=== PATIENT | female | born 1965 | race Caucasian/White ===

== ENCOUNTER → 2016-05-13 08:49 | Outpatient (CLI) | payer MEDICAID ==
[~2016-05-13 08:49] MED LIST: ASPIRIN EC81 M1 PO; CATAPRES0.1 MG PO; HYDROCODON-ACE1 EAC9 PO; HYDROXYZINE HCL10 MG PO; LIPITOR20 MG PO; PRILOSEC20 MG PO; RESTORIL15 MG PO; SOMA350 MG PO; TYLENOL W/CODEI1 TAB PO
== END | disposition home or self-care (01) ==
LOC: D.RT 08:49
DX: J44.9 Chronic obstructive pulmonary disease, unspecified (principal)

== ENCOUNTER 2018-05-20 14:44 | Emergency (ER) | payer MEDICAID ==
[~2018-05-20] VITALS: Ht 147.3 cm; Wt 45.5 kg
[2018-05-20 14:57] VITALS: Ht 147.3 cm; Wt 45.5 kg
[2018-05-20] MEDS ORDERED: SYNTHROID88 MCG PO (15:01)
[2018-05-20] MEDS ORDERED: OXYCODONE-APAP1 TAB PO (15:01)
[2018-05-20] MEDS ORDERED: CARAFATE1 G PO (15:01)
[2018-05-20] MEDS ORDERED: ZOFRAN8 MG PO (15:01)
[2018-05-20 15:51] LABS: BASOPHILS 0.1 % (0-2); EOSINOPHILS 0.4 % (0-7); HEMATOCRIT 44.7 % (36.0-48.0); HEMOGLOBIN 15.2 g/dL (12-16); IMMATURE GRANULOCYTES 0.1 % (0-5); LYMPHOCYTES 17.2 % (15-50); MCH 32.7 pg (26.0-34.0); MCV 96.1 fL (80.0-100.0); MEAN PLATELET VOLUME 9.6 fL (7.4-10.4); MONOCYTES 3.5 % (2-11); NEUTROPHILS 78.7 % (40-80); PLATELET COUNT 283 10x3/uL (130-400); RBC 4.65 10x6/uL (4.00-5.40); RDW 13.1 % (11.5-14.5); WBC 10.3 10x3/uL (4.8-10.8)
[2018-05-20 16:11] LABS: APPEARANCE CLEAR (CLEAR); BILIRUBIN NEGATIVE (NEGATIVE); COLOR DK YELLOW (YELLOW); GLUCOSE NEGATIVE (NEGATIVE); KETONE NEGATIVE (NEGATIVE); NITRITE NEGATIVE (NEGATIVE); PROTEIN NEGATIVE (NEGATIVE); SPECIFIC GRAVITY 1.025 (1.005-1.020); UROBILINOGEN NORMAL (NORMAL)
[2018-05-20 16:12] LABS: BACTERIA FEW /hpf (NONE SEEN); EPITHELIAL CELLS 0-5 /hpf (0-5); RED CELLS - URINE 0-5 /hpf (0-5); WHITE CELLS - URINE 0-5 /hpf (0-5); YEAST <1+ /hpf (NONE SEEN)
[2018-05-20 16:13] LABS: CALCIUM OXALATE CRYSTALS 0-5 /hpf (NONE SEEN)
[2018-05-20 16:14] LABS: ALBUMIN 2.9 g/dL (3.4-5.0); ANION GAP 13.6 mmol/L (8-16); BILIRUBIN - TOTAL 0.35 mg/dL (0.2-1.3); CALCIUM 8.8 mg/dL (8.5-10.1); POTASSIUM - SERUM 3.6 mmol/L (3.5-5.1); PROTEIN - SERUM 6.5 g/dL (6.4-8.2)
[2018-05-20 17:26] LABS: UDS - AMPHET NEGATIVE QUAL (NEGATIVE); UDS - BARB NEGATIVE QUAL (NEGATIVE); UDS - BENZO NEGATIVE QUAL (NEGATIVE); UDS - COCAINE NEGATIVE QUAL (NEGATIVE); UDS - OPIATE POSITIVE QUAL (NEGATIVE); UDS - PCP NEGATIVE QUAL (NEGATIVE); UDS - THC NEGATIVE QUAL (NEGATIVE)
[2018-05-20] MEDS ORDERED: MIRALAX17 GM PO (21:27)
[2018-05-20] MEDS ORDERED: OMEPRAZOLE20 M1 PO (21:28)
[2018-05-20 22:35] VITALS: BP 90/63
== END 2018-05-20 22:35 | disposition home or self-care (01) ==
LOC: D.ER 14:44
PROVIDERS: Emergency Medicine
DX: Z87.19 Personal history of other diseases of the digestive system (principal); N39.0 Urinary tract infection, site not specified

== ENCOUNTER → 2018-06-13 16:40 | Outpatient (CLI) | payer MEDICAID ==
[2018-05-20 14:57] VITALS: BMI 20.9
[~2018-06-13 16:40] MED LIST changes: +CARAFATE1 G PO; +MIRALAX17 GM PO; +OMEPRAZOLE20 M1 PO; +OXYCODONE-APAP1 TAB PO; +SYNTHROID88 MCG PO; +ZOFRAN8 MG PO
== END | disposition home or self-care (01) ==
LOC: D.RAD 16:40
DX: G89.4 Chronic pain syndrome (principal); E07.9 Disorder of thyroid, unspecified; J45.909 Unspecified asthma, uncomplicated; M79.602 Pain in left arm; M25.519 Pain in unspecified shoulder; G90.50 Complex regional pain syndrome I, unspecified; Z79.899 Other long term (current) drug therapy

== ENCOUNTER 2018-12-01 13:38 | Emergency (ER) | payer MEDICAID ==
[~2018-12-01] VITALS: Ht 147.3 cm; Wt 40.9 kg
[2018-12-01 13:51] VITALS: Ht 147.3 cm; Wt 40.9 kg
[2018-12-01 14:28] LABS: BASOPHILS 0.4 % (0-2); EOSINOPHILS 1.3 % (0-7); HEMATOCRIT 32.6 % (36.0-48.0); HEMOGLOBIN 11.3 g/dL (12-16); IMMATURE GRANULOCYTES 0.6 % (0-5); LYMPHOCYTES 34.6 % (15-50); MCH 36.5 pg (26.0-34.0); MCHC 34.7 g/dL (31.0-37.0); MCV 105.2 fL (80.0-100.0); MEAN PLATELET VOLUME 8.8 fL (7.4-10.4); MONOCYTES 4.4 % (2-11); NEUTROPHILS 58.7 % (40-80); RDW 14.8 % (11.5-14.5); WBC 5.4 10x3/uL (4.8-10.8)
[2018-12-01 14:29] LABS: PLATELET COUNT 470 10x3/uL (130-400)
[2018-12-01 14:37] LABS: APTT 31.5 SECONDS (22.8-39.4); INR 0.98 (0.85-1.17); PROTIME 12.5 SECONDS (11.6-15.0)
[2018-12-01 14:41] LABS: ALBUMIN 3.1 g/dL (3.4-5.0); ALKALINE PHOSPHATASE 153 U/L (46-116); ALT (SGPT) 34 U/L (10-68); BILIRUBIN - TOTAL 0.84 mg/dL (0.2-1.3); CALC OSMOLALITY 265 mosm/kg (275-300); CALCIUM 8.1 mg/dL (8.5-10.1); CARBON DIOXIDE 19.7 mmol/L (21.0-32.0); CHLORIDE - SERUM 97 mmol/L (98-107); CREATININE - SERUM 0.9 mg/dL (0.6-1.3); GLUCOSE 93 mg/dL (74-106); POTASSIUM - SERUM 3.6 mmol/L (3.5-5.1); PROTEIN - SERUM 6.9 g/dL (6.4-8.2); SODIUM 134 mmol/L (136-145); UREA NITROGEN 7 mg/dL (7-18); eGFR NON AFRICAN AMERICAN 70 mL/min (90-120)
[2018-12-01 14:52] LABS: CKMB 0.5 U/L (0.0-3.6); CREATINE KINASE 74 UL (21-215); MAGNESIUM - SERUM 1.9 mg/dL (1.8-2.4)
[2018-12-01 15:01] LABS: TROPONIN-I < 0.017 ng/mL (0.000-0.060)
[2018-12-01 15:36] LABS: AMYLASE - SERUM 20 U/L (25-115); LIPASE 54 U/L (73-393)
[2018-12-01] MEDS ORDERED: FLAGYL500 MG PO (17:21)
[2018-12-01] MEDS ORDERED: CIPRO500 MG PO (17:21)
[2018-12-01 18:01] VITALS: BP 93/67
== END 2018-12-01 18:01 | disposition home or self-care (01) ==
LOC: D.ER 13:38
PROVIDERS: Family Medicine
DX: K52.9 Noninfective gastroenteritis and colitis, unspecified (principal); G89.29 Other chronic pain; R16.0 Hepatomegaly, not elsewhere classified

== ENCOUNTER 2019-01-05 20:01 | Inpatient (IN) | payer MEDICAID ==
[~2019-01-05] VITALS: Ht 147.3 cm; Wt 43.4 kg
[~2019-01-05 20:01] MED LIST changes: +CIPRO500 MG PO; +FLAGYL500 MG PO
[2019-01-05] MEDS ORDERED: BACLOFEN10 MG PO (20:19)
[2019-01-05 20:31] LABS: BASOPHILS 0.2 % (0-2); EOSINOPHILS 0.7 % (0-7); HEMATOCRIT 35.9 % (36.0-48.0); HEMOGLOBIN 12.6 g/dL (12-16); IMMATURE GRANULOCYTES 0.3 % (0-5); LYMPHOCYTES 23.9 % (15-50); MCH 36.5 pg (26.0-34.0); MCHC 35.1 g/dL (31.0-37.0); MCV 104.1 fL (80.0-100.0); MEAN PLATELET VOLUME 9.2 fL (7.4-10.4); MONOCYTES 5.7 % (2-11); NEUTROPHILS 69.2 % (40-80); RBC 3.45 10x6/uL (4.00-5.40)
[2019-01-05 20:39] LABS: PLATELET COUNT 373 10x3/uL (130-400)
[2019-01-05 20:48] LABS: ALBUMIN 2.8 g/dL (3.4-5.0); ALKALINE PHOSPHATASE 115 U/L (46-116); ALT (SGPT) 13 U/L (10-68); AMYLASE - SERUM 14 U/L (25-115); CALC OSMOLALITY 270 mosm/kg (275-300); CALCIUM 8.6 mg/dL (8.5-10.1); CARBON DIOXIDE 27.4 mmol/L (21.0-32.0); CHLORIDE - SERUM 99 mmol/L (98-107); GLUCOSE 119 mg/dL (74-106); LIPASE 55 U/L (73-393); POTASSIUM - SERUM 4.2 mmol/L (3.5-5.1); PROTEIN - SERUM 6.3 g/dL (6.4-8.2); SODIUM 134 mmol/L (136-145); UREA NITROGEN 18 mg/dL (7-18); eGFR NON AFRICAN AMERICAN 62 mL/min (90-120)
[2019-01-05 20:49] LABS: TROPONIN-I < 0.017 ng/mL (0.000-0.060)
[2019-01-06 00:04] VITALS: BP 107/72; BMI 18.0
[2019-01-06 04:00] VITALS: BP 97/68
[2019-01-06 04:43] LABS: BASOPHILS 0.1 % (0-2); EOSINOPHILS 0.8 % (0-7); IMMATURE GRANULOCYTES 0.2 % (0-5); LYMPHOCYTES 20.9 % (15-50); MCH 35.8 pg (26.0-34.0); MCHC 34.5 g/dL (31.0-37.0); MCV 103.6 fL (80.0-100.0); MEAN PLATELET VOLUME 9.6 fL (7.4-10.4); MONOCYTES 6.2 % (2-11); NEUTROPHILS 71.8 % (40-80); PLATELET COUNT 313 10x3/uL (130-400); RDW 14.2 % (11.5-14.5)
[2019-01-06 04:56] LABS: WBC 8.9 10x3/uL (4.8-10.8)
[2019-01-06 04:57] LABS: CALC OSMOLALITY 273 mosm/kg (275-300); CALCIUM 7.6 mg/dL (8.5-10.1); CARBON DIOXIDE 21.9 mmol/L (21.0-32.0); CHLORIDE - SERUM 103 mmol/L (98-107); GLUCOSE 89 mg/dL (74-106); HEMATOCRIT 28.4 % (36.0-48.0); HEMOGLOBIN 9.8 g/dL (12-16); MAGNESIUM - SERUM 1.7 mg/dL (1.8-2.4); PHOSPHOROUS 2.9 mg/dL (2.5-4.9); POTASSIUM - SERUM 3.9 mmol/L (3.5-5.1); RBC 2.74 10x6/uL (4.00-5.40); SODIUM 137 mmol/L (136-145); UREA NITROGEN 14 mg/dL (7-18)
[2019-01-06 05:01] LABS: CREATININE - SERUM 0.7 mg/dL (0.6-1.3); eGFR NON AFRICAN AMERICAN > 90 mL/min (90-120)
[2019-01-06 08:00] VITALS: BP 94/64
[2019-01-06 11:07] LABS: APPEARANCE CLEAR (CLEAR); BILIRUBIN NEGATIVE (NEGATIVE); COLOR YELLOW (YELLOW); GLUCOSE NEGATIVE (NEGATIVE); KETONE LARGE mg/dL (NEGATIVE); NITRITE NEGATIVE (NEGATIVE); PROTEIN NEGATIVE (NEGATIVE); SPECIFIC GRAVITY 1.005 (1.005-1.020)
[2019-01-06 11:13] LABS: UDS - AMPHET NEGATIVE QUAL (NEGATIVE); UDS - BARB NEGATIVE QUAL (NEGATIVE); UDS - BENZO POSITIVE QUAL (NEGATIVE); UDS - COCAINE NEGATIVE QUAL (NEGATIVE); UDS - OPIATE POSITIVE QUAL (NEGATIVE); UDS - PCP NEGATIVE QUAL (NEGATIVE); UDS - THC NEGATIVE QUAL (NEGATIVE)
[2019-01-06 12:30] VITALS: BP 93/64
[2019-01-06 16:30] VITALS: BP 97/70
[2019-01-06 20:00] VITALS: BP 91/57
[2019-01-07 00:18] VITALS: BP 80/48
[2019-01-07 05:35] LABS: BASOPHILS 0.2 % (0-2); EOSINOPHILS 2.1 % (0-7); HEMATOCRIT 25.6 % (36.0-48.0); HEMOGLOBIN 8.4 g/dL (12-16); IMMATURE GRANULOCYTES 0.2 % (0-5); LYMPHOCYTES 26.7 % (15-50); MCH 33.7 pg (26.0-34.0); MCHC 32.8 g/dL (31.0-37.0); MCV 102.8 fL (80.0-100.0); MEAN PLATELET VOLUME 9.7 fL (7.4-10.4); MONOCYTES 5.5 % (2-11); NEUTROPHILS 65.3 % (40-80); PLATELET COUNT 272 10x3/uL (130-400); RBC 2.49 10x6/uL (4.00-5.40); RDW 14.1 % (11.5-14.5)
[2019-01-07 05:42] LABS: WBC 5.7 10x3/uL (4.8-10.8)
[2019-01-07 05:58] LABS: CALC OSMOLALITY 275 mosm/kg (275-300); CALCIUM 7.4 mg/dL (8.5-10.1); CARBON DIOXIDE 22.7 mmol/L (21.0-32.0); CHLORIDE - SERUM 108 mmol/L (98-107); CREATININE - SERUM 0.7 mg/dL (0.6-1.3); GLUCOSE 91 mg/dL (74-106); POTASSIUM - SERUM 3.7 mmol/L (3.5-5.1); SODIUM 140 mmol/L (136-145); eGFR NON AFRICAN AMERICAN > 90 mL/min (90-120)
[2019-01-07 06:02] LABS: UREA NITROGEN 5 mg/dL (7-18)
[2019-01-07 06:25] VITALS: BP 87/55
[2019-01-07 08:43] VITALS: BP 95/61
[2019-01-07 10:37] VITALS: Ht 147.3 cm; Wt 43.4 kg
[2019-01-07 13:28] VITALS: BP 105/63
[2019-01-07 17:15] VITALS: BP 97/66
[2019-01-07 20:00] VITALS: BP 99/70
[2019-01-08 00:01] VITALS: BP 89/55
[2019-01-08 04:00] VITALS: BP 100/68
[2019-01-08 06:42] LABS: CALCIUM 7.5 mg/dL (8.5-10.1); CARBON DIOXIDE 20.7 mmol/L (21.0-32.0); CHLORIDE - SERUM 111 mmol/L (98-107); CREATININE - SERUM 0.7 mg/dL (0.6-1.3); GLUCOSE 82 mg/dL (74-106); SODIUM 143 mmol/L (136-145); eGFR NON AFRICAN AMERICAN > 90 mL/min (90-120)
[2019-01-08 06:43] LABS: CALC OSMOLALITY 279 mosm/kg (275-300); UREA NITROGEN 2 mg/dL (7-18)
[2019-01-08 06:51] LABS: BASOPHILS 0.3 % (0-2); EOSINOPHILS 1.4 % (0-7); HEMATOCRIT 24.3 % (36.0-48.0); HEMOGLOBIN 8.6 g/dL (12-16); IMMATURE GRANULOCYTES 0.3 % (0-5); LYMPHOCYTES 25.1 % (15-50); MCH 36.4 pg (26.0-34.0); MCHC 35.4 g/dL (31.0-37.0); MEAN PLATELET VOLUME 9.2 fL (7.4-10.4); MONOCYTES 2.9 % (2-11); PLATELET COUNT 325 10x3/uL (130-400); RBC 2.36 10x6/uL (4.00-5.40); RDW 14.3 % (11.5-14.5)
[2019-01-08 07:07] LABS: WBC 7.3 10x3/uL (4.8-10.8)
[2019-01-08 09:03] VITALS: BP 124/78
[2019-01-08 12:34] VITALS: BP 104/75
[2019-01-08] MEDS ORDERED: FLAGYL500 MG PO (16:17)
[2019-01-08] MEDS ORDERED: LEVAQUIN750 MG PO (16:18)
--- NOTE | 2019-01-09 07:34 | MORECARE ---
CASE MANAGEMENT DISCHARGE SUMMARY PATIENT: SOLO POWELL UNIT: [id number] ADM DATE: 01/05/19 AGE: 53 : 67 SEX: F ROOM/BED: D.2110 AUTHOR: JE COE PHYSICIAN: REFERRING PHYSICIAN: MARY ALLRED MD DATE OF SERVICE: 01/09/19 Discharge Plan Patient Name: SOLO [facility]OWELL [facility] [facility] 1965 Planned Disposition: Home Anticipated Discharge Date: 01/08/19 Discharge Date: 01/08/2019 Expected LOS: 3 Initial Reviewer: [email or web address] Initial Review Date: 01/08/2019 Generated: 01/09/19 8:34 am Patient Name: SOLO POWELL Page [id number] at 0734 All edits/amendments must be made on the electronic document DICTATION DATE: 01/09/1934 SEWER SEPARATION DESIGNER: [email or web address] 01/09/19 0734 RPT#: [id number] DC DATE:01/08/19 STATUS: DIS IN [facility] [address] [place] [address] END OF REPORT
== END 2019-01-08 17:26 | disposition home or self-care (01) | DRG 394 ==
LOC: D.ER 20:01 → D.M2 22:41
PROVIDERS: Family Medicine; ADMIT Internal Medicine Nephrology; ATTEND Internal Medicine Nephrology
DX: K52.1 Toxic gastroenteritis and colitis (principal); E87.1 Hypo-osmolality and hyponatremia; N17.9 Acute kidney failure, unspecified; F17.213 Nicotine dependence, cigarettes, with withdrawal; K58.9 Irritable bowel syndrome, unspecified; D64.9 Anemia, unspecified; E83.42 Hypomagnesemia; E78.5 Hyperlipidemia, unspecified; E03.9 Hypothyroidism, unspecified; T50.995A Adverse effect of other drugs, medicaments and biological substances, initial encounter

== ENCOUNTER 2019-10-09 12:08 | Emergency (ER) | payer MEDICAID ==
[~2019-10-09] VITALS: Ht 147.3 cm; Wt 36.5 kg
[~2019-10-09 12:08] MED LIST changes: +BACLOFEN10 MG PO; +LEVAQUIN750 MG PO
[2019-10-09 12:20] VITALS: BP 138/77; Ht 147.3 cm; Wt 36.5 kg
[2019-10-09] MEDS ORDERED: AMBIEN5 MG PO (12:27)
[2019-10-09] MEDS ORDERED: PHENERGAN25 M1 PO (12:28)
[2019-10-09] MEDS ORDERED: CYPROHEPTAD2 MG/5 ML PO (12:29)
[2019-10-09] MEDS ORDERED: MELATONIN10 M1 PO (12:29)
[2019-10-09] MEDS ORDERED: ZYRTEC10 MG PO (12:29)
[2019-10-09 12:48] LABS: BASOPHILS 0.7 % (0-2); EOSINOPHILS 2.5 % (0-7); IMMATURE GRANULOCYTES 0.1 % (0-5); LYMPHOCYTES 41.7 % (15-50); MCH 33.4 pg (26.0-34.0); MCHC 34.2 g/dL (31.0-37.0); MCV 97.7 fL (80.0-100.0); MEAN PLATELET VOLUME 9.2 fL (7.4-10.4); MONOCYTES 4.5 % (2-11); NEUTROPHILS 50.5 % (40-80); PLATELET COUNT 372 10x3/uL (130-400); RBC 3.89 10x6/uL (4.00-5.40); RDW 15.4 % (11.5-14.5); WBC 7.5 10x3/uL (4.8-10.8)
[2019-10-09 12:55] LABS: ANION GAP 11.1 mmol/L (8-16); CALCIUM 9.2 mg/dL (8.5-10.1); CARBON DIOXIDE 28.9 mmol/L (21.0-32.0); CREATININE - SERUM 1.2 mg/dL (0.6-1.3)
[2019-10-09 13:00] LABS: ALBUMIN 3.9 g/dL (3.4-5.0); BILIRUBIN - TOTAL 0.39 mg/dL (0.2-1.3); PROTEIN - SERUM 8.2 g/dL (6.4-8.2)
[2019-10-09 13:18] LABS: BILIRUBIN NEGATIVE (NEGATIVE); GLUCOSE NEGATIVE (NEGATIVE); KETONE NEGATIVE (NEGATIVE); NITRITE NEGATIVE (NEGATIVE); UROBILINOGEN NORMAL (NORMAL)
== END 2019-10-09 14:01 | disposition home or self-care (01) ==
LOC: D.ER 12:08
PROVIDERS: Family Medicine
DX: Z71.1 Person with feared health complaint in whom no diagnosis is made (principal); E87.6 Hypokalemia; E03.9 Hypothyroidism, unspecified

== ENCOUNTER → 2019-10-23 13:15 | Outpatient (CLI) | payer MEDICAID ==
[2019-10-09 12:20] VITALS: BMI 16.8
[~2019-10-23 13:15] MED LIST changes: +AMBIEN5 MG PO; +CYPROHEPTAD2 MG/5 ML PO; +MELATONIN10 M1 PO; +PHENERGAN25 M1 PO; +ZYRTEC10 MG PO
[2019-10-23 13:39] LABS: BASOPHILS 0.7 % (0-2); EOSINOPHILS 2.4 % (0-7); HEMATOCRIT 34.9 % (36.0-48.0); IMMATURE GRANULOCYTES 0.1 % (0-5); LYMPHOCYTES 45.3 % (15-50); MCH 33.2 pg (26.0-34.0); MCHC 34.4 g/dL (31.0-37.0); MCV 96.7 fL (80.0-100.0); MEAN PLATELET VOLUME 9.5 fL (7.4-10.4); MONOCYTES 3.8 % (2-11); NEUTROPHILS 47.7 % (40-80); PLATELET COUNT 324 10x3/uL (130-400); RBC 3.61 10x6/uL (4.00-5.40); WBC 7.1 10x3/uL (4.8-10.8)
[2019-10-23 14:00] LABS: % SATURATION 52 % (15-55); IRON 96 ug/dl (35-150); TOTAL IRON BIND CAPACITY 184 ug/dl (260-445); UNSAT IRON BIND CAPACITY 88 ug/dl (150-375)
== END | disposition home or self-care (01) ==
LOC: D.LAB 10-15 08:00 → D.RT 10-15 09:00 → D.RAD 10-15 09:45
PROVIDERS: ATTEND Internal Medicine Pulmonary Disease
DX: J44.9 Chronic obstructive pulmonary disease, unspecified (principal); R53.83 Other fatigue